=== PATIENT | male | born 1960 | race Caucasian/White ===

== ENCOUNTER 2017-07-16 12:45 | Inpatient (IN) ==
--- NOTE | 2017-07-15 21:01 | Discharge Summary ---
<Jackeline Jimenez - Last Filed: 07/15/17 20:57> Date of Encounter: 07/15/17 - Discharge Diagnosis (1) Status post total hip replacement, left Priority: Primary Status: Acute (2) Arthritis of left hip Priority: Primary Status: Acute (3) HTN (hypertension) Priority: Secondary Status: Chronic Qualifiers: Hypertension type: essential hypertension Qualified Code(s): I10 - Essential (primary) hypertension (4) Tobacco use Priority: Secondary Status: Chronic (5) Obesity Priority: Secondary Status: Chronic Qualifiers: Obesity type: due to excess calories Obesity classification: unspecified obesity classification Serious obesity comorbidity presence: unspecified whether serious comorbidity present Qualified Code(s): E66.09 - Other obesity due to excess calories (6) Lumbar stenosis Priority: Secondary Status: Chronic Qualifiers: Neurogenic claudication status: unspecified Qualified Code(s): M48.061 - Spinal stenosis, lumbar region without neurogenic claudication - Hospital Course Hospital course: Mr. Zendejas is a 56 year old male - Time Spent with Patient Total time spent providing and/or coordinating discharge services: - Discharge Medications Home Medications: Aspirin Enteric Coated [Aspirin EC] 325 mg PO BID #20 tablet. 07/15/17 [Rx] OxyCODONE Immed Rel [Roxicodone 5 MG] 5 mg PO Q6HR PRN 7 Days #28 tablet [Rx] Allergies/Adverse Reactions: 3 Allergy/AdvReac Type Severity Reaction Status Date / Time No Known Allergies Allergy Verified 07/16/17 13:16 Primary care physician: PCP NONE - Patient Status Disposition: Home, Self-Care Condition: Good - Discharge Instructions Follow Up With: NONE,PCP [Primary Care Provider] - <Ryan Cehn - Last Filed: 07/17/17 06:19> Orders not resulted at time of discharge: Pending orders 07/16/17 00:01 XR hip complete LT [XR] Routine H/H [Hemoglobin and Hematocrit] [HEME] Routine Date of Encounter: 07/17/17 Time of Encounter: 06:19 - Discharge Diagnosis (1) Obesity (BMI 30.0-34.9) Priority: Secondary Status: Chronic (2) Status post total hip replacement, left Priority: Primary Status: Acute (3) Arthritis of left hip Priority: Primary Status: Chronic (4) HTN (hypertension) Priority: Secondary Status: Chronic Qualifiers: Hypertension type: essential hypertension Qualified Code(s): I10 - Essential (primary) hypertension (5) Tobacco use Priority: Secondary Status: Chronic (6) Lumbar stenosis Priority: Secondary Status: Chronic Qualifiers: Neurogenic claudication status: unspecified Qualified Code(s): M48.061 - Spinal stenosis, lumbar region without neurogenic claudication - Hospital Course Hospital course: Mr. Zendejas is a 56 year old male Status post total hip replacement The patient had an uneventful postoperative course. They received antibiotics and physical therapy and were discharged in stable condition. There will follow -up in the office in 2 weeks. - Time Spent with Patient Total time spent providing and/or coordinating discharge services: Primary care physician: PCP NONE - Patient Status Functional capacity at discharge: uses cane/walker Overall status at discharge: patient is progressing back to baseline
--- NOTE | 2017-07-15 21:02 | Physician Discharge Referral ---
Home Health/Hosp Referral Info Transfer to: Home Health Provider in Charge Post Discharge: PCP - Diagnosis (1) Status post total hip replacement, left Priority: Primary Status: Acute (2) Arthritis of left hip Priority: Primary Status: Acute (3) HTN (hypertension) Status: Chronic (4) Tobacco use Status: Chronic (5) Obesity Status: Chronic (6) Lumbar stenosis Status: Chronic - Respiratory Orders None Smoking Cessation: Smoking cessation has been advised. For more information, call the [place] Tobacco Quit Line at 9-440-CSFW-NOW. - Diet/Nutrition Diet/Nutrition Orders: Regular - Activity Activity Orders: Up ad jaden, Ambulate, Walker - Services Needed Following services are medically necessary services: Nursing, Home Health Aide, Physical Therapy, Occupational Therapy Home Care Orders: HIP Continuity Opsite dressing, leave intact until first post-operative visit. If dressing becomes >50% saturated, contact office, remove dressing and place appropriate dressing in its place. Do not allow for dressing to get wet. Zipline/[place] in place, plan to remove at post-operative day #14-16. Total Joint Precautions x 6 weeks Apply cold therapy wrap 3-6x/day for 20 minutes at a time. Encourage ambulation throughout the day Use Incentive spirometer 10x/hour. Elevate affected extremity above heart as tolerated. Brace: Wear hip abductor brace at night x 6 weeks.~ - Transfer Medications Prescriptions: OxyCODONE Immed Rel [Roxicodone 5 MG] 5 mg PO Q6HR PRN 7 Days #28 tablet PRN Reason: Severe Pain Aspirin Enteric Coated [Aspirin EC] 325 mg PO BID #20 tablet. Home Medications: Aspirin Enteric Coated [Aspirin EC] 325 mg PO BID #20 tablet. 07/15/17 [Rx] OxyCODONE Immed Rel [Roxicodone 5 MG] 5 mg PO Q6HR PRN 7 Days #28 tablet [Rx] Allergies/Adverse Reactions: 3 Allergy/AdvReac Type Severity Reaction Status Date / Time No Known Allergies Allergy Verified 07/09/17 09:55 Certification: Further, I certify that my clinical findings support that this patient is homebound (i.e. absences from home require considerable and taxing effort and are for medical reasons or anabaptist services or infrequently or short duration when for other reasons) because: Homebound Reason: Post-surgery restriction and or conditions limit ability to leave home Attestation: My signature below is to certify that this patient is under my care and that I, or nurse practitioner, or a physician's bakery assistant working with me, has a face-to -face encounter with this patient.
[2017-07-16] MEDS ORDERED: Albuterol 2.5 MG/3 ML NEBULIZER IH ONE (13:24)
[2017-07-16] MEDS ORDERED: CeFAZolin Syr 2,000MG/20 ML 2,000 MG/20 ML SYRINGE IVPB ONE (13:24)
[2017-07-16] MEDS ORDERED: Ringers Solution, Lactated 500 ML IVC SCH (13:30)
[2017-07-16] MEDS ORDERED: Acetaminophen IV 1,000 MG/100 ML INFUS..BTL IVPB ONE (14:58)
--- NOTE | 2017-07-16 15:01 | Anesthesia Evaluation PreOp ---
Date of Encounter: 07/16/17 Time of Encounter: 15:03 - Past History Planned Operation: L THR robotic Cardiac History: HTN Pulmonary History: Smoker, Pack/yr (36) [employer] History: Other (chronic low back pain) Other Medical History: Denies Any Significant HX Anesthesia History: No Prior Anesthetic Complications, Past Anesthesia (R hand small finger) Alcohol Use: none Drug use: none Medications and Allergies Aspirin Enteric Coated [Aspirin EC] 325 mg PO BID #20 tablet. 07/15/17 [Rx] OxyCODONE Immed Rel [Roxicodone 5 MG] 5 mg PO Q6HR PRN 7 Days #28 tablet [Rx] 3 Allergy/AdvReac Type Severity Reaction Status Date / Time No Known Allergies Allergy Verified 07/16/17 13:16 - Meds/Allergy Pre-op Review Medications Reviewed: Yes Allergies Reviewed: Yes Beta Blockers on Current Med List: No Anesthesia Results - Labs Laboratory Tests 12/28/14 07/09/17 07/09/17 10:05 10:16 10:16 WBC 7.5 Hgb 16.5 Hct 49.4 Plt Count 259 Sodium 134 L Potassium 4.5 Chloride 103 Carbon Dioxide 25 BUN 13 Creatinine 0.94 Glucose 93 - Imaging EKG: report reviewed ( Interpretive Statements SINUS RHYTHM WITH FIRST DEGREE AV BLOCK INFERIOR MYOCARDIAL INFARCTION, PROBABLY OLD ANTEROSEPTAL MYOCARDIAL INFARCTION, OF INDETERMINATE AGE Electronically Signed On 07-10-2017 6:46:36 EDT by Andrew Doyle) Anesthesia Exam O2 Sat Height 1.88 m Height 1.88 m Height 1.88 m Weight 119.748 kg Weight 119.748 kg Weight 119.748 kg O2 Sat by Pulse Oximetry 97 Vital Signs Temp Pulse Resp BP Pulse Ox 97.9 F 83 18 138/98 97 07/16/17 13:04 07/16/17 13:04 07/16/17 13:04 07/16/17 13:04 07/16/17 13:04 Height: 74" Weight: 255lbs - HEENT Pupil (Motor): Pupils equal, EOMI Mallampati: III (neck is short, thryromental distance is short) Teeth: Normal Oral Opening: Less than or equal to 3 - [employer] LOC: Oriented [employer] Motor: Normal RUE, Normal LUE, Normal RLE, Normal LLE, Normal Face [employer] Sensory: Normal: RUE, LUE, RLE, LLE, Face - Cardiac Rhythm: Regular - Pulmonary Breath Sounds: bilateral Clear Respiratory Effort: Symmetrical Anesthesia Assess/Plan ASA Score: 2 Modified Flint Scale for Level of Consciousness: Cooperative, oriented, and tranquil Anesthetic Plan: General Monitoring Plan: Standard Monitors Recovery Plan: PACU
--- NOTE | 2017-07-16 15:59 | History & Physical Report ---
Date of Encounter: 07/16/17 Time of Encounter: 15:59 24 Hour HP Update - Instructions Instructions: If the History and Physical is less than 30 days old and was completed prior to A.M. admission and or procedure and has NOT been updated on calendar day of procedure please complete this update prior to performing procedure. - Update Patient reports changes in Medical Condition: No Changes in examination, assessment, or condition: No Changes in Medication: No Preop tests/diagnostics Reviewed: Yes Surgery Remains Indicated: Yes Consent for Planned Operative Procedure(s) Verified: Yes - Pre-Operative Checklist Preoperative Checklist Indicated: No Prophylactic Antibiotic Ordered: Yes Is VTE Prophylaxis Indicated?: Yes
[2017-07-16] MEDS ORDERED: *HR* Midazolam HCl 2 MG/2 ML VIAL ONE (16:11)
[2017-07-16] MEDS ORDERED: *HR* FentaNYL (PF) 100 MCG/2 ML VIAL ONE ×5 (16:18→18:42)
[2017-07-16] MEDS ORDERED: *HR* Propofol 200 MG/20 ML VIAL IVP ONE (16:19)
[2017-07-16] MEDS ORDERED: Ethanol\\Acetic Acid\\Na Ace\\Ben 1,000 ML IRRIG.SOLN IR ONE (16:42)
[2017-07-16] MEDS ORDERED: Dexamethasone 4 MG/ML VIAL ONE (16:52)
[2017-07-16] MEDS ORDERED: Ondansetron 4 MG/2 ML VIAL ONE (16:52)
[2017-07-16] MEDS ORDERED: Lidocaine -MPF 4% 5 ML AMPUL ONE (16:52)
[2017-07-16] MEDS ORDERED: *HR* Succinylcholine 200 MG/10 ML VIAL IVP ONE (16:52)
[2017-07-16] MEDS ORDERED: Lidocaine -MPF 2% 2 ML VIAL ONE (16:52)
[2017-07-16] MEDS ORDERED: *HR* Enoxaparin 30 MG/0.3 ML SYRINGE SQ SCH (18:00)
[2017-07-16] MEDS ORDERED: *HR* Promethazine 25 MG/ML VIAL IVP PRN (18:12)
[2017-07-16] MEDS ORDERED: *HR* OxyCODONE/APAP 5/325 TABLET PO PRN (18:12)
[2017-07-16] MEDS ORDERED: *HR* Meperidine 25 MG/ML SYRINGE IVP PRN (18:12)
[2017-07-16] MEDS ORDERED: *HR* Labetalol 20 MG/4 ML SYRINGE IVP PRN (18:12)
[2017-07-16] MEDS ORDERED: Ondansetron 4 MG/2 ML VIAL IVP ONE (18:12)
--- NOTE | 2017-07-16 18:13 | Orthopedic Operative Note ---
Date of procedure: 07/16/17 Pre-op diagnosis: Left hip arthritis Post-op diagnosis: same Procedure: Procedure: Left Total Hip Replacment robotic-assisted Estimated blood loss: 200 cc Hardware: Metal and polyethylene replacement. Huseyin DM Cup: 62 cup Femoral 11 size stem Head: 8 head with Alessandra Procedural Notes: Grade 4 arthritic changes femoral head acetabular socket, procedure performed with robotic assistance. 16 mm shorter operative leg measured by CT scan preop Operative procedure: The patient was brought to the operating room and placed on the operating room table. After general anesthesia was administered the patient was placed in the lateral decubitus position with the operative leg up. All pressure points were padded appropriately and the head was stabilized in the neutral position. The operative extremity was prepped and draped in the sterile surgical fashion patient received IV antibiotic prior to skin incision. 3 Steinmann pins were placed in the iliac crest 3 cm proximal to the anterior superior iliac spine this was for the robotic-assisted sensor. This was done through a small 2 cm incision. A standard posterior approach is made to the operative hip, the incision was made through the skin and subcutaneous tissue hemostasis was obtained with Bovie cautery. Using careful sharp dissection the fascia was identified and incised exposing the external rotators. The femoral checkpoint was placed leg length was measured at this time utilizing robotic assistance. The external rotators were released off the greater trochanter and tagged with # 2 FiberWire suture. The capsule was T'd open and the hip was brought into internal rotation. Patient noted to have grade 4 arthritic changes femoral head. The femoral neck cut was made at the appropriate level roughly 15 mm proximal to the lesser trochanter aced on preoperative templating. An anterior capsulotomy was performed for the anterior retractor. Soft tissues removed from the acetabulum. Patient noted to have grade 4 arthritic changes acetabulum. The acetabulum checkpoint was placed confirmed. The acetabulum was then mapped with robotic assistance. Based on the preoperative plan the acetabulum was reamed in one step with a 61 reamer. The 62 acetabulum was impacted with robotic assistance and 40 degrees of abduction and 11 degrees of anteversion. The hip was brought back in to internal rotation and prepared with the box hinge and lock attacher followed by the canal finder followed by the reaming process to a size 11 /12 broaching process in 20 degrees anteversion. It was broached up to the appropriate size 11. Trial reduction revealed leg lengths close to normal. The femoral implant was impacted in place in 20 degrees of anteversion. Trial reduction found the hip to be stable with 8 head and Alessandra. The trials were removed and the real implants were impacted in place. The hip was reduced, patient had robotic confirmed leg length of 6 mm longer than the contralateral side. The hip had excellent stability with forward flexion to 90 degrees adduction of 30 degrees and internal rotation of 60 degrees. The hip had no shuck. The hips after 2 minutes with a antibacterial solution. It was irrigated out with 2 L of pulse irrigation. The checkpoints were removed, Steinmann pins were removed. The hip was closed by the PA. The deep tissue was irrigated and closed deep with #1 PDS suture superficially with 0 PDS suture and skin was closed with Dermabond and zip tie. The patient was placed in a sterile dressing and abduction pillow. The patient was extubated and transferred to the recovery room in stable condition. Anesthesia: GETA Surgeon: Ryan Chen Was there an licensed physical therapist assistant present: Yes Lapel Padder Blindstitch: Jackeline Jimenez Estimated blood loss (cc): 200 Condition: stable Disposition: PACU
[2017-07-16] MEDS ORDERED: Ringers Solution, Lactated 1,000 ML IVC SCH ×2 (18:15→20:03)
[2017-07-16] MEDS: MORPHINE SUL Oral CONC 10 MG/0.5 ML ORAL.SYG SL PRN ×2 (18:55→19:05)
[2017-07-16] MEDS: *HR* HYDROmorphone (PF) 1 MG/ML SYRINGE IVP PRN ×2 (19:10→19:20)
[2017-07-16 19:28] LABS: Hematocrit 41.6 % (37.5-50.1); Hemoglobin 14.1 g/dL (12.9-16.9)
--- NOTE | 2017-07-16 19:45 | Anesthesia Evaluation Post Op ---
Date of Encounter: 07/16/17 Time of Encounter: 19:42 - Vital Signs Vital Signs: vss - Lungs Lungs: Clear Ascult./Percussion - Airway Airway: Non-obstructed - Cardiovascular Baseline Rhythm - Mental Status Mental Status: Alert & Oriented, Answers Appropriately - Pain Pain Scale used: Robertson-Chambers (Faces) (tolerable) - Nausea Vomiting Nausea Vomiting: Not Present - Hydration Hydration: Ice chips - Discharge PostOp Status: Transfer Patient to floor
[2017-07-16] MEDS ORDERED: Temazepam 15 MG CAPSULE PO PRN (20:03)
[2017-07-16] MEDS ORDERED: Ondansetron 4 MG/2 ML VIAL IVP PRN (20:03)
[2017-07-16] MEDS ORDERED: MOM Conc 10 ML UD.LIQ PO PRN (20:03)
[2017-07-16] MEDS ORDERED: Naloxone 0.4 MG/ML INJ IVP PRN (20:03)
[2017-07-16] MEDS ORDERED: *HR* OxyCODONE Immed Rel 5 MG TABLET PO PRN (20:03)
[2017-07-16] MEDS ORDERED: traMADol 50 MG TABLET PO PRN (20:03)
[2017-07-16] MEDS ORDERED: Sennosides 8.6 MG TABLET PO PRN (20:03)
[2017-07-16] MEDS: Ascorbic Acid 500 MG TABLET PO SCH (21:02)
[2017-07-17] MEDS: CeFAZolin Syr 3,000MG/30 ML 3,000 MG/30 ML SYRINGE IVPB SCH ×2 (00:19→07:45)
[2017-07-17] MEDS: *HR* OxyCODONE/APAP 5/325 TABLET PO PRN ×3 (01:05→10:20)
[2017-07-17 01:07] LABS: Hematocrit 41.2 % (37.5-50.1)
[2017-07-17 01:29] LABS: BUN/Creatinine Ratio 10 (6-26); Blood Urea Nitrogen 14 mg/dL (6-20); Calcium 9.3 mg/dL (8.6-10.3); Carbon Dioxide 19 mEq/L (23-29); Chloride 102 mEq/L (98-107); Glucose 215 mg/dL (70-105); Osmolality,Calculated 283 (280-300); Potassium 4.2 mEq/L (3.5-5.1); Sodium 133 mEq/L (136-145); eGFR For African Americans > 60 (> 60); eGFR For Non-African Americans 54 (> 60)
[2017-07-17] MEDS ORDERED: *HR* Enoxaparin 30 MG/0.3 ML SYRINGE SQ SCH (06:00)
--- NOTE | 2017-07-17 06:20 | Orthopedics Progress Note ---
Date of Encounter: 07/17/17 Time of Encounter: 06:19 - Assessment and Plan (1) Obesity (BMI 30.0-34.9) Current Visit: Yes Status: Chronic (2) Status post total hip replacement, left Current Visit: No Status: Acute (3) Arthritis of left hip Current Visit: No Status: Chronic (4) HTN (hypertension) Current Visit: No Status: Chronic Qualifiers: Hypertension type: essential hypertension Qualified Code(s): I10 - Essential (primary) hypertension (5) Tobacco use Current Visit: No Status: Chronic (6) Lumbar stenosis Current Visit: No Status: Chronic Qualifiers: Neurogenic claudication status: unspecified Qualified Code(s): M48.061 - Spinal stenosis, lumbar region without neurogenic claudication Subjective Interval history: Patient was seen this morning doing well without complaints. Afebrile vital signs stable. Operative extremity: Neurovascularly intact Dressing clean dry and intact Calves nontender Assessment and plan: Continue with postoperative care Hemoglobin 14 discharged today Objective Vital signs: Vital Signs Temp Pulse Resp BP Pulse Ox 07/17/17 03:58 97.4 F L 77 16 126/90 95 07/16/17 23:36 97.5 F L 89 16 112/82 99 07/16/17 23:05 97.8 F 78 16 126/82 96 07/16/17 22:05 97.6 F 88 16 122/80 96 07/16/17 21:05 98.2 F 79 16 131/88 97 07/16/17 20:35 97.7 F 68 16 96 07/16/17 20:05 97.5 F L 57 16 144/86 96 07/16/17 19:33 98.1 F 62 18 134/88 98 07/16/17 19:24 98.1 F 64 18 150/90 98 07/16/17 19:14 98.1 F 68 18 159/96 96 07/16/17 19:04 97.9 F 65 18 159/100 96 07/16/17 18:54 97.4 F L 75 18 169/108 100 07/16/17 18:44 97.0 F L 89 20 176/108 100 07/16/17 13:04 97.9 F 83 18 138/98 97 Intake and Output 07/16/17 07/16/17 07/17/17 15:59 23:59 07:59 Intake Total 300 / 300 300 / 300 Output Total 200 / 200 200 / 200 Balance 100 / 100 100 / 100 Intake: Oral 300 / 300 300 / 300 Output: Urine 0 / 0 200 / 200 Estimated Blood Loss 200 / 200 Other: Weight 119.748 kg - Labs CBC & BMP: 07/17/17 00:32 04 00:32 Labs: Abnormal lab results Sodium 133 mEq/L (136-145) L 07/17/17 00:32 Carbon Dioxide 19 mEq/L (23-29) L 07/17/17 00:32 Creatinine 1.37 mg/dL (0.70-1.30) H 07/17/17 00:32 Est GFR (Non-Af Amer) 54 (> 60) L 07/17/17 00:32 Glucose 215 mg/dL (70-105) H 07/17/17 00:32 - VTE Documentation of Mechanical Device: Venous foot pump, device Consult Discharge Plan - Plan Referrals: NONE,PCP [Primary Care Provider] -
[2017-07-17 07:04] VITALS: BP 146/97
[2017-07-17] MEDS: Ascorbic Acid 500 MG TABLET PO SCH (07:43)
[2017-07-17] MEDS ORDERED: Multivit/Ca/Min/Fe/FA 1 TAB TABLET PO SCH (09:00)
== END 2017-07-17 11:56 | disposition home or self-care (01) | DRG 470 ==
LOC: SAMDAY 12:45 → 3NENU 20:00
PROVIDERS: ADMIT Orthopaedic Surgery; ATTEND Orthopaedic Surgery